=== PATIENT | female | born 1935 | race Caucasian/White ===

== ENCOUNTER 2016-10-26 09:05 | Observation (INO) | payer OTHER, BC ==
[~2016-10-26] VITALS: Ht 149.9 cm; Wt 80.1 kg
[~2016-10-26 09:05] MED LIST: ASPIR 8181 M1 PO; ATACAND16 MG PO; ATIVAN0.5 MG PO; CLARITIN,ALAVAR10 MG PO; JANUVIA100 MG PO; JANUVIA25 MG PO; LOMOTIL TABLET1 EACH PO; LOPRESSOR25 MG PO; NASONEX17 GM BOTH NARES; PRANDIN0.5 MG PO; PREVACID30 MG PO; PROCARDIA XL30 MG PO; Procardia XL,Adalat PO; TAZTIA XT120 M1 PO; VITAMIN D31000 UNI2 PO; VITAMIN D3400 UNI1 PO
[2016-10-26 10:57] LABS: MCH 28.2 PG (29.0-34.0); MCHC 32.4 G/DL (30.0-36.0); MCV 87.1 FL (83-99); MEAN PLAT.VOLUME 10.4 uM^3 (9.5-12.4); PLATELET COUNT 313 K/uL (156-360); RBC DIS.WIDTH-SD 45.2 % (39-53); RED BLOOD COUNT 4.82 M/uL (3.80-5.20); WHITE BLOOD COUNT 7.3 K/uL (4.1-10.2)
[2016-10-26 11:09] LABS: CHLORIDE 107 mEq/L (99-109); POTASSIUM 3.8 mEq/L (3.7-5.4); SODIUM 141 mEq/L (136-147)
[2016-10-26 11:10] LABS: D-DIMER ELISA 0.33 mg/L FEU (< 0.57)
[2016-10-26 11:11] LABS: GLUCOSE 151 mg/dL (70-99)
[2016-10-26 11:12] LABS: ANION GAP 8 MEQ/L (2-14)
[2016-10-26 11:15] LABS: GFR ESTIMATE (CALCULATED) > 59 mL/min/
[2016-10-26 11:16] LABS: UREA NITROGEN (BUN) 12 mg/dL (9-23)
[2016-10-26 11:19] LABS: TROP-I INTERPRETATION NEGATIVE; TROPONIN-I < 0.01 ng/mL (0.0-0.30)
[2016-10-26] MEDS ORDERED: VITAMIN D32000 UNI1 PO (12:46)
[2016-10-26] MEDS ORDERED: REPAGLINIDE0.5 MG PO ×2 (12:48→12:49)
[2016-10-26] MEDS ORDERED: NASONEX17 GM BOTH NARES (12:50)
[2016-10-26] MEDS ORDERED: ACIPHEX20 MG PO (12:50)
[2016-10-26 14:26] VITALS: BP 175/81
[2016-10-26 16:53] LABS: TROP-I INTERPRETATION NEGATIVE; TROPONIN-I < 0.01 ng/mL (0.0-0.30)
[2016-10-26 19:51] VITALS: BP 152/70
[2016-10-26 21:56] LABS: TROP-I INTERPRETATION NEGATIVE; TROPONIN-I < 0.01 ng/mL (0.0-0.30)
[2016-10-26 23:51] VITALS: BP 124/40
[2016-10-27 04:00] VITALS: BP 142/68
[2016-10-27 06:48] LABS: HEMATOCRIT 41.8 % (36.0-46.0); MCH 28.3 PG (29.0-34.0); MCHC 32.3 G/DL (30.0-36.0); MCV 87.6 FL (83-99); MEAN PLAT.VOLUME 10.3 uM^3 (9.5-12.4); PLATELET COUNT 290 K/uL (156-360); RBC DIS.WIDTH-CV 14.1 % (11.8-14.6); RBC DIS.WIDTH-SD 45.4 % (39-53); RED BLOOD COUNT 4.77 M/uL (3.80-5.20); WHITE BLOOD COUNT 8.1 K/uL (4.1-10.2)
[2016-10-27 07:18] LABS: ANION GAP 12 MEQ/L (2-14); CHLORIDE 104 MEQ/L (99-109); GFR ESTIMATE (CALCULATED) > 59 mL/min/; GLUCOSE 131 mg/dL (70-99); SAMPLE HEMOLYSIS CHECK 0; SAMPLE ICTERIC CHECK 0; SAMPLE LIPEMIA CHECK 0; SODIUM 141 MEQ/L (136-147); UREA NITROGEN (BUN) 12 mg/dL (9-23)
[2016-10-27 07:43] VITALS: BP 159/72
[2016-10-27 07:52] LABS: POINT-OF-CARE METER ID UU13113700
== END 2016-10-27 10:44 | disposition home or self-care (01) ==
LOC: EME 09:05 → EDOF 13:31 → 5WEST 13:31 → EDOF 13:31 → 5WEST 14:19
PROVIDERS: Emergency Medicine; Internal Medicine
DX: R07.89 Other chest pain (principal); E11.9 Type 2 diabetes mellitus without complications; I10 Essential (primary) hypertension; K21.9 Gastro-esophageal reflux disease without esophagitis; E78.5 Hyperlipidemia, unspecified; E66.9 Obesity, unspecified; Z68.35 Body mass index [BMI] 35.0-35.9, adult; I25.10 Atherosclerotic heart disease of native coronary artery without angina pectoris; K58.9 Irritable bowel syndrome, unspecified; I65.23 Occlusion and stenosis of bilateral carotid arteries
CPT/HCPCS: 71020; 80048; 82948; 84484; 85027; 85379; 93005; 99281; 99285; G0378; J1650